=== PATIENT | male | born 1945 | race Caucasian/White ===

== ENCOUNTER 2017-06-28 18:54 | Inpatient (IN) | payer MEDICAID, OTHER ==
[~2017-06-28] VITALS: Ht 185.4 cm; Wt 94.4 kg
[2017-06-28] MEDS ORDERED: NITROGLYCERIN PACKET 1 GM PACKET ONE (19:22)
[2017-06-28 19:23] LABS: BASOPHILS % (AUTO) 0.6 % (0.0-2.0); EOSINOPHILS # (AUTO) 0.2 /CMM (0.0-0.7); EOSINOPHILS % (AUTO) 4.2 % (0.0-6.0); HEMATOCRIT 31 % (39-51); HEMOGLOBIN 10.6 g/dL (13.5-17.5); LYMPHOCYTES # (AUTO) 0.9 /CMM (0.8-4.8); LYMPHOCYTES % (AUTO) 18.6 % (20.0-44.0); MEAN CORPUSCULAR HEMOGLOBIN 29 PG (26.0-33.0); MEAN CORPUSCULAR HGB CONC 35 g/dl (31.0-36.0); MEAN CORPUSCULAR VOLUME 85 fL (80-96); MONOCYTES # (AUTO) 0.4 /CMM (0.1-1.30); MONOCYTES % (AUTO) 8.6 % (2.0-12.0); NEUTROPHILS # (AUTO) 3.5 /CMM (1.8-8.9); PLATELET COUNT (AUTO) 234 /CMM (150-450); RDW COEFFICIENT OF VARIATION 13.1 (11.5-15.0); RED BLOOD CELL COUNT(AUTO) 3.63 MIL/uL (4.5-6.0)
[2017-06-28] MEDS ORDERED: NITROGLYCERIN PACKET 1 GM PACKET TOP ONE (19:30)
[2017-06-28 19:33] LABS: CREATININE 1.2 mg/dL (0.6-1.3); POTASSIUM 3.9 mmol/L (3.5-5.1)
[2017-06-28 19:37] LABS: INR 1.03 (0.87-1.13); PROTHROMBIN TIME 10.7 SECS (9.5-12.7)
[2017-06-28 19:41] LABS: TROPONIN I 0.09 ng/mL (0.00-0.056)
[2017-06-28] MEDS ORDERED: ASPI-605 PO (21:08)
[2017-06-28] MEDS ORDERED: FERR-58 PO (21:08)
[2017-06-28] MEDS ORDERED: CLOP75TA15 PO (21:08)
[2017-06-28] MEDS ORDERED: LISI10TA5 PO (21:08)
[2017-06-28] MEDS ORDERED: FLUT16SP NS (21:08)
[2017-06-28] MEDS ORDERED: METO25TA6 PO (21:08)
[2017-06-28] MEDS ORDERED: PANT40TA4 PO (21:08)
[2017-06-28] MEDS ORDERED: RANO500T3 PO (21:08)
[2017-06-28] MEDS ORDERED: NITR0.4T48 SL (21:08)
[2017-06-28] MEDS ORDERED: MECL-102 PO (21:08)
[2017-06-28] MEDS ORDERED: ROSU40TA20 PO (21:08)
[2017-06-28] MEDS ORDERED: ONDA4TAB10 PO (21:08)
[2017-06-28] MEDS ORDERED: DOCU100C36 PO (21:08)
[2017-06-28] MEDS ORDERED: ISOS60TA4 PO (21:08)
[2017-06-28] MEDS ORDERED: SENN-167 PO (21:08)
[2017-06-28 21:10] VITALS: BP 122/70
[2017-06-28 21:30] VITALS: BP 122/70
[2017-06-28] MEDS ORDERED: ONDANSETRON HCL/PF 4 MG/2 ML VIAL IVP PRN (22:30)
[2017-06-28] MEDS ORDERED: MAGNESIUM HYDROXIDE 30 ML UDC PO PRN (22:30)
[2017-06-28] MEDS ORDERED: HYDROCODONE/APAP 5/325MG 1 EACH TABLET PO PRN (22:30)
[2017-06-28] MEDS ORDERED: ACETAMINOPHEN 325 MG TABLET PO PRN (22:30)
[2017-06-28] MEDS ORDERED: MAG HYDROX/AL HYDROX/SIMETH 30 ML UDC PO PRN (22:30)
[2017-06-28] MEDS ORDERED: Z GUARD REMEDY 2 OZ OINT TP PRN (22:30)
[2017-06-29] VITALS: BP 137/72
[2017-06-29 04:00] VITALS: BP 121/73
[2017-06-29] MEDS ORDERED: MORPHINE SULFATE INJ 2 MG/ML DISP.SYRIN ONE (05:06)
[2017-06-29] MEDS: MORPHINE SULFATE INJ 2 MG/ML DISP.SYRIN IV PRN (05:16)
[2017-06-29 07:20] LABS: BASOPHILS % (AUTO) 0.3 % (0.0-2.0); EOSINOPHILS # (AUTO) 0.2 /CMM (0.0-0.7); EOSINOPHILS % (AUTO) 3.9 % (0.0-6.0); HEMATOCRIT 32 % (39-51); HEMOGLOBIN 10.8 g/dL (13.5-17.5); LYMPHOCYTES # (AUTO) 0.8 /CMM (0.8-4.8); LYMPHOCYTES % (AUTO) 13.1 % (20.0-44.0); MEAN CORPUSCULAR HEMOGLOBIN 29 PG (26.0-33.0); MEAN CORPUSCULAR HGB CONC 34 g/dl (31.0-36.0); MEAN CORPUSCULAR VOLUME 87 fL (80-96); MONOCYTES # (AUTO) 0.4 /CMM (0.1-1.30); MONOCYTES % (AUTO) 6.9 % (2.0-12.0); NEUTROPHILS # (AUTO) 4.8 /CMM (1.8-8.9); NEUTROPHILS % (AUTO) 75.8 % (43.0-81.0); PLATELET COUNT (AUTO) 180 /CMM (150-450); RDW COEFFICIENT OF VARIATION 14.4 (11.5-15.0); RED BLOOD CELL COUNT(AUTO) 3.67 MIL/uL (4.5-6.0); WHITE BLOOD COUNT (AUTO) 6.4 K/uL (4.3-11.0)
[2017-06-29 07:26] LABS: CALCIUM, SERUM 8.2 mg/dL (8.5-10.1); CREATININE 0.9 mg/dL (0.6-1.3); POTASSIUM 4.1 mmol/L (3.5-5.1)
[2017-06-29 07:39] LABS: ALBUMIN 3.3 g/dL (3.4-5.0); BILIRUBIN,TOTAL 0.2 mg/dL (0.2-1.0); MAGNESIUM 2.1 mg/dL (1.8-2.4); PHOSPHORUS 3.3 mg/dL (2.5-4.9); TOTAL PROTEIN, SERUM 6.5 g/dL (6.4-8.2)
[2017-06-29 07:40] LABS: TROPONIN I 0.093 ng/mL (0.00-0.056)
[2017-06-29 08:00] VITALS: BP 154/74
[2017-06-29 08:14] LABS: THYROID STIMULATING HORMONE 2.734 uIU/mL (0.358-3.74)
[2017-06-29] MEDS: FLUTICASONE PROPIONATE 16 GM BOTTLE NS SCH (08:52)
[2017-06-29] MEDS: LISINOPRIL (10MG) 10 MG TABLET PO SCH (08:53)
[2017-06-29] MEDS: ASPIRIN EC 81 MG TABLET.DR PO SCH (08:54)
[2017-06-29] MEDS: METOPROLOL TARTRATE 25 MG TABLET PO SCH ×2 (08:54→17:00)
[2017-06-29] MEDS: PANTOPRAZOLE 40 MG TABLET.DR PO SCH (08:54)
[2017-06-29] MEDS: DOCUSATE SODIUM 100 MG CAPSULE PO SCH ×2 (08:54→17:17)
[2017-06-29] MEDS: CLOPIDOGREL BISULFATE 75 MG TABLET PO SCH (08:54)
[2017-06-29] MEDS: ENOXAPARIN SODIUM 100 MG/ML DISP.SYRIN SQ SCH ×2 (08:55→21:29)
[2017-06-29] MEDS: ALBUTEROL FS 2.5 MG/0.5 ML VIAL.NEB NEB SCH ×5 (09:00→22:41)
[2017-06-29] MEDS ORDERED: Ranolazine (Ranexa) PO SCH (09:00)
[2017-06-29] MEDS: IPRATROPIUM NEB FS 0.5 MG/2.5 ML AMPUL.NEB NEB SCH ×5 (09:00→22:41)
[2017-06-29] MEDS ORDERED: FERROUS SULFATE (325 MG) 325 MG/TAB TABLET PO SCH (09:00)
[2017-06-29] MEDS ORDERED: MECLIZINE HCL 25 MG TABLET PO PRN (09:00)
[2017-06-29] MEDS: ISOSORBIDE MONONITRATE (30MG) 30 MG TAB.SR.24H PO SCH (13:00)
[2017-06-29 16:00] VITALS: BP 108/58
[2017-06-29 20:00] VITALS: BP 118/66
[2017-06-29] MEDS ORDERED: GUAIFENESIN/D-METHORPHAN HB 5 ML UDC ONE ×2 (21:18→21:27)
[2017-06-29] MEDS: GUAIFENESIN/D-METHORPHAN HB 5 ML UDC PO PRN (21:28)
[2017-06-29] MEDS ORDERED: GUAIFENESIN/CODEINE 10 ML UDC PO PRN (21:30)
[2017-06-29] MEDS: ATORVASTATIN 40 MG TABLET PO SCH (22:00)
[2017-06-29] MEDS: SENNOSIDES 8.6 MG TABLET PO SCH (22:00)
[2017-06-30] VITALS (7 sets, daily range): BP systolic 106–126; BP diastolic 56–71
[2017-06-30] MEDS: NITROGLYCERIN 0.4 MG/TAB BOTTLE SL PRN ×2 (03:29→03:45)
[2017-06-30] MEDS: ALBUTEROL FS 2.5 MG/0.5 ML VIAL.NEB NEB SCH ×6 (04:11→23:01)
[2017-06-30] MEDS: IPRATROPIUM NEB FS 0.5 MG/2.5 ML AMPUL.NEB NEB SCH ×6 (04:11→23:02)
[2017-06-30 07:02] LABS: BASOPHILS % (AUTO) 0.4 % (0.0-2.0); EOSINOPHILS # (AUTO) 0.2 /CMM (0.0-0.7); EOSINOPHILS % (AUTO) 3.3 % (0.0-6.0); HEMATOCRIT 32 % (39-51); HEMOGLOBIN 10.8 g/dL (13.5-17.5); LYMPHOCYTES # (AUTO) 0.7 /CMM (0.8-4.8); LYMPHOCYTES % (AUTO) 14.7 % (20.0-44.0); MEAN CORPUSCULAR HEMOGLOBIN 29 PG (26.0-33.0); MEAN CORPUSCULAR HGB CONC 34 g/dl (31.0-36.0); MEAN CORPUSCULAR VOLUME 87 fL (80-96); MONOCYTES # (AUTO) 0.4 /CMM (0.1-1.30); MONOCYTES % (AUTO) 8.3 % (2.0-12.0); NEUTROPHILS # (AUTO) 3.7 /CMM (1.8-8.9); NEUTROPHILS % (AUTO) 73.3 % (43.0-81.0); PLATELET COUNT (AUTO) 179 /CMM (150-450); RDW COEFFICIENT OF VARIATION 14.4 (11.5-15.0)
[2017-06-30 07:47] LABS: TROPONIN I 0.089 ng/mL (0.00-0.056)
[2017-06-30 07:51] LABS: ALBUMIN 3.2 g/dL (3.4-5.0); BILIRUBIN,TOTAL 0.2 mg/dL (0.2-1.0); CALCIUM, SERUM 8.5 mg/dL (8.5-10.1); CREATININE 0.9 mg/dL (0.6-1.3); MAGNESIUM 2.3 mg/dL (1.8-2.4); POTASSIUM 4.2 mmol/L (3.5-5.1); TOTAL PROTEIN, SERUM 6.5 g/dL (6.4-8.2)
[2017-06-30] MEDS: PANTOPRAZOLE 40 MG TABLET.DR PO SCH (08:54)
[2017-06-30] MEDS: LISINOPRIL (10MG) 10 MG TABLET PO SCH (08:55)
[2017-06-30] MEDS: DOCUSATE SODIUM 100 MG CAPSULE PO SCH ×2 (08:55→16:59)
[2017-06-30] MEDS: CLOPIDOGREL BISULFATE 75 MG TABLET PO SCH (08:55)
[2017-06-30] MEDS: METOPROLOL TARTRATE 25 MG TABLET PO SCH ×2 (08:55→16:51)
[2017-06-30] MEDS: ISOSORBIDE MONONITRATE (30MG) 30 MG TAB.SR.24H PO SCH (08:55)
[2017-06-30] MEDS: ENOXAPARIN SODIUM 100 MG/ML DISP.SYRIN SQ SCH ×2 (08:56→21:22)
[2017-06-30] MEDS: ASPIRIN EC 81 MG TABLET.DR PO SCH (08:56)
[2017-06-30] MEDS: FLUTICASONE PROPIONATE 16 GM BOTTLE NS SCH (08:58)
[2017-06-30] MEDS: GUAIFENESIN/D-METHORPHAN HB 5 ML UDC PO PRN (11:21)
[2017-06-30] MEDS: MORPHINE SULFATE INJ 2 MG/ML DISP.SYRIN IV PRN (15:11)
[2017-06-30] MEDS: ATORVASTATIN 40 MG TABLET PO SCH (21:22)
[2017-06-30] MEDS: SENNOSIDES 8.6 MG TABLET PO SCH (21:22)
[2017-07-01] VITALS: BP 131/67
[2017-07-01 00:21] VITALS: BP 131/67
[2017-07-01] MEDS: ALBUTEROL FS 2.5 MG/0.5 ML VIAL.NEB NEB SCH ×4 (03:47→14:59)
[2017-07-01] MEDS: IPRATROPIUM NEB FS 0.5 MG/2.5 ML AMPUL.NEB NEB SCH ×4 (03:47→14:59)
[2017-07-01 04:18] VITALS: BP 120/66
[2017-07-01 04:24] VITALS: BP 120/66
[2017-07-01 08:00] VITALS: BP 131/77
[2017-07-01] MEDS ORDERED: LEVOFLOXACIN (750 MG) 750 MG TABLET PO SCH (09:00)
[2017-07-01] MEDS ORDERED: ERGOCALCIFEROL (VITAMIN D 2) 50,000 UNIT CAPSULE PO SCH (10:00)
[2017-07-01] MEDS ORDERED: LEVO750T21 PO (10:04)
[2017-07-01] MEDS: DOCUSATE SODIUM 100 MG CAPSULE PO SCH (10:40)
[2017-07-01] MEDS: CLOPIDOGREL BISULFATE 75 MG TABLET PO SCH (10:40)
[2017-07-01] MEDS: ASPIRIN EC 81 MG TABLET.DR PO SCH (10:41)
[2017-07-01] MEDS: PANTOPRAZOLE 40 MG TABLET.DR PO SCH (10:42)
[2017-07-01] MEDS: METOPROLOL TARTRATE 25 MG TABLET PO SCH (10:43)
[2017-07-01] MEDS: LISINOPRIL (10MG) 10 MG TABLET PO SCH (10:44)
[2017-07-01] MEDS: ISOSORBIDE MONONITRATE (30MG) 30 MG TAB.SR.24H PO SCH (10:45)
[2017-07-01] MEDS: NITROGLYCERIN 0.4 MG/TAB BOTTLE SL PRN ×3 (10:49→14:54)
[2017-07-01] MEDS: FLUTICASONE PROPIONATE 16 GM BOTTLE NS SCH (10:54)
[2017-07-01 15:00] VITALS: BP 128/68
[2017-07-01] MEDS ORDERED: ENOXAPARIN SODIUM 100 MG/ML DISP.SYRIN SQ SCH (21:00)
== END 2017-07-01 15:50 | disposition home or self-care (01) | DRG 280 ==
LOC: ER 18:56 → TELE 21:01 → MED 07-01 09:01
PROVIDERS: ADMIT Nurse Practitioner Acute Care; ATTEND Nurse Practitioner Acute Care
DX: I21.4 Non-ST elevation (NSTEMI) myocardial infarction (principal); N17.0 Acute kidney failure with tubular necrosis; D50.9 Iron deficiency anemia, unspecified; K40.90 Unilateral inguinal hernia, without obstruction or gangrene, not specified as recurrent; I25.10 Atherosclerotic heart disease of native coronary artery without angina pectoris; I10 Essential (primary) hypertension; K21.9 Gastro-esophageal reflux disease without esophagitis; R42 Dizziness and giddiness; Z98.61 Coronary angioplasty status; E55.9 Vitamin D deficiency, unspecified; J20.9 Acute bronchitis, unspecified
CPT/HCPCS: 36415; 71010-TC; 80048-TC; 80053-TC; 80061-TC; 82306; 82728-TC; 83540-TC; 83735-TC; 83880; 84100-TC; 84439-TC; 84443-TC; 84484-TC; 85025-TC; 85730-TC; 87081-TC; 93307-TC; 94799-TC; J1650; J2270

== ENCOUNTER 2017-09-17 18:59 | Inpatient (IN) | payer OTHER ==
[~2017-09-17] VITALS: Ht 337.8 cm; Wt 93.4 kg
[~2017-09-17 18:59] MED LIST: ASPI-605 PO; CLOP75TA15 PO; DOCU100C36 PO; FERR325T23 PO; FLUT16SP NS; ISOS60TA4 PO; LEVO750T21 PO; LISI10TA5 PO; MECL-102 PO; METO25TA6 PO; NITR0.4T48 SL; ONDA4TAB10 PO; PANT40TA4 PO; RANO500T3 PO; ROSU40TA21 PO; SENN-167 PO
[2017-09-17 19:50] LABS: BASOPHILS % (AUTO) 0.5 % (0.0-2.0); EOSINOPHILS # (AUTO) 0.2 /CMM (0.0-0.7); HEMATOCRIT 29 % (39-51); HEMOGLOBIN 10.3 g/dL (13.5-17.5); LYMPHOCYTES # (AUTO) 1.1 /CMM (0.8-4.8); LYMPHOCYTES % (AUTO) 17.1 % (20.0-44.0); MEAN CORPUSCULAR HEMOGLOBIN 29 PG (26.0-33.0); MEAN CORPUSCULAR HGB CONC 35 g/dl (31.0-36.0); MEAN CORPUSCULAR VOLUME 83 fL (80-96); MONOCYTES # (AUTO) 0.5 /CMM (0.1-1.30); MONOCYTES % (AUTO) 7.7 % (2.0-12.0); NEUTROPHILS # (AUTO) 4.4 /CMM (1.8-8.9); NEUTROPHILS % (AUTO) 71.7 % (43.0-81.0); PLATELET COUNT (AUTO) 230 /CMM (150-450); RDW COEFFICIENT OF VARIATION 13.3 (11.5-15.0); RED BLOOD CELL COUNT(AUTO) 3.53 MIL/uL (4.5-6.0); WHITE BLOOD COUNT (AUTO) 6.2 K/uL (4.3-11.0)
[2017-09-17 20:03] LABS: CALCIUM, SERUM 8.8 mg/dL (8.5-10.1); CREATININE 1.1 mg/dL (0.6-1.3)
[2017-09-17 20:07] LABS: INR 0.98 (0.85-1.15)
[2017-09-17 20:12] LABS: TROPONIN I 0.073 ng/mL (0.00-0.056)
[2017-09-17] MEDS ORDERED: ONDANSETRON HCL/PF 4 MG/2 ML VIAL IVP PRN (20:30)
[2017-09-17] MEDS ORDERED: ENOXAPARIN SODIUM 40 MG/0.4 ML DISP.SYRIN SQ SCH (20:30)
[2017-09-17] MEDS ORDERED: MECLIZINE HCL 25 MG TABLET PO SCH (20:30)
[2017-09-17] MEDS ORDERED: ZOLPIDEM TARTRATE 5 MG TABLET PO PRN (20:30)
[2017-09-17] MEDS ORDERED: MAGNESIUM HYDROXIDE 30 ML UDC PO PRN (20:30)
[2017-09-17] MEDS ORDERED: NITROGLYCERIN 0.4 MG/TAB BOTTLE SL SCH (20:30)
[2017-09-17] MEDS ORDERED: MAG HYDROX/AL HYDROX/SIMETH 30 ML UDC PO PRN (20:30)
[2017-09-17] MEDS ORDERED: HYDROCODONE/APAP 5/325MG 1 EACH TABLET PO PRN (20:30)
[2017-09-17] MEDS ORDERED: ACETAMINOPHEN 325 MG TABLET PO PRN (20:30)
[2017-09-17] MEDS ORDERED: Z GUARD REMEDY 2 OZ OINT TP PRN (20:30)
--- NOTE | 2017-09-17 21:01 | NUR ---
TELE 310-2 FOR CHEST PAIN, ACCEPTING.
[2017-09-17] MEDS ORDERED: ENOXAPARIN SODIUM 40 MG/0.4 ML DISP.SYRIN SQ ONE (21:02)
[2017-09-17] MEDS: NITROGLYCERIN PACKET 1 GM PACKET TOP SCH (21:05)
--- NOTE | 2017-09-17 21:51 | NUR ---
REPORT GIVEN TO MAGGIE CHAU. GOING TO TELE 310-2
[2017-09-17 22:00] VITALS: BP 134/78
[2017-09-17] MEDS: SENNOSIDES 8.6 MG TABLET PO SCH (22:00)
--- NOTE | 2017-09-17 22:30 | NUR ---
RN NOTE; ADMITTED A 71 Y/O, M, A, OX4, BREATHING EVENLY. NO SOB. NAD. ALDAIR WARM AND DRY. W/ INTERMITTENT CHEST PAIN. MEDICAL HX AND INFO WAS OBTAINED FROM THE PT. VSS. NEEDS ATTENDED . BED LOW LOCKED. CALL LIGHT WITHIN REACH,. WILL CONT TO MONITOR AND WILL F/U W/ MD'S ORDERS.
--- NOTE | 2017-09-17 22:50 | NUR ---
SEEN BY DR. WILLIS AT THE BEDSIDE.
[2017-09-17] MEDS: MORPHINE SULFATE INJ 4 MG/ML DISP.SYRIN IV PRN (23:00)
--- NOTE | 2017-09-17 23:00 | NUR ---
MORPHINE GIVEN ORDERED FOR C/O CHEST PAIN . WILL CONT TO MONITOR ,
--- NOTE | 2017-09-17 23:03 | NUR ---
PT REFUSED CAROLINE STATED THE HE DOESN'T TAKE THAT. LAST BM: YESTERDAY.
[2017-09-18] VITALS: BP 130/75
--- NOTE | 2017-09-18 00:20 | NUR ---
PT IS SLEEPING, AROUSES EASILY, W/ NO S/S OR C/O PAIN OR DISCOMFORT. TELE MONITOR IN PLACE READING SR W/ 1ST DEGREE AV BLOCK. HR:61. WILL CONT TO MONITOR ,
--- NOTE | 2017-09-18 00:46 | NUR ---
CALLED LAB TO DRAW TROPONIN, [facility] IS ON THE WAY.
--- NOTE | 2017-09-18 01:33 | NUR ---
RELAYED TROPONIN LEVEL OF 0.[address] WILLIS W/ NNO. PT STABLE, SLEEPING, W/ NO S/S OR C/O CHEST PAIN. NO SOB. ON ONGOING CARDIAC MONITORING. VSS. WILL CONT TO MONITOR.
[2017-09-18 04:00] VITALS: BP 118/61
[2017-09-18] MEDS: NITROGLYCERIN PACKET 1 GM PACKET TOP SCH ×3 (05:43→20:52)
--- NOTE | 2017-09-18 06:27 | NUR ---
RN NOTES: PATIENT IN BED SLEEPING COMFORTABLY, AROUSES EASILY, NO ACUTE DISTRESS NOTED. IV TO RIGHT FA PATENT AND INTACT. PATIENT PLACED ON TELE MONITOR SHOWING SR/SB IST DEGREE AV BLOCK. NO COMPLAINTS OF CHEST PAIN AT THIS TIME. BED IN LOW LOCKED POSITION WITH CALL LIGHT WITHIN REACH.
[2017-09-18 06:39] LABS: BASOPHILS % (AUTO) 0.4 % (0.0-2.0); EOSINOPHILS # (AUTO) 0.2 /CMM (0.0-0.7); EOSINOPHILS % (AUTO) 3.7 % (0.0-6.0); HEMATOCRIT 30 % (39-51); HEMOGLOBIN 10.1 g/dL (13.5-17.5); LYMPHOCYTES # (AUTO) 1.1 /CMM (0.8-4.8); LYMPHOCYTES % (AUTO) 20.8 % (20.0-44.0); MEAN CORPUSCULAR HEMOGLOBIN 29 PG (26.0-33.0); MEAN CORPUSCULAR HGB CONC 34 g/dl (31.0-36.0); MEAN CORPUSCULAR VOLUME 85 fL (80-96); MONOCYTES # (AUTO) 0.4 /CMM (0.1-1.30); MONOCYTES % (AUTO) 7.9 % (2.0-12.0); NEUTROPHILS # (AUTO) 3.5 /CMM (1.8-8.9); NEUTROPHILS % (AUTO) 67.2 % (43.0-81.0); PLATELET COUNT (AUTO) 192 /CMM (150-450); RED BLOOD CELL COUNT(AUTO) 3.47 MIL/uL (4.5-6.0); WHITE BLOOD COUNT (AUTO) 5.2 K/uL (4.3-11.0)
[2017-09-18 06:56] LABS: CALCIUM, SERUM 8.2 mg/dL (8.5-10.1); CREATININE 0.9 mg/dL (0.6-1.3); MAGNESIUM 2.2 mg/dL (1.8-2.4); PHOSPHORUS 4.1 mg/dL (2.5-4.9); POTASSIUM 4.1 mmol/L (3.5-5.1)
[2017-09-18] MEDS: PANTOPRAZOLE 40 MG TABLET.DR PO SCH (07:11)
--- NOTE | 2017-09-18 07:15 | NUR ---
ZOFRAN GIVEN ORDERED FOR C/O NAUSEA. WILL CONT TO MONITOR.
--- NOTE | 2017-09-18 07:43 | NUR ---
Tele/RN - AM Notes Received patient in bed awake, A/O x 4, denies chest pain, tele shows SR with first degree AVB, no apparent distress, nausea improved post Zofran administration. Patient independent with ADLs. All needs attended and met. Will continue to monitor closely.
[2017-09-18 08:00] VITALS: BP 134/73
[2017-09-18] MEDS: DOCUSATE SODIUM 100 MG CAPSULE PO SCH ×2 (08:29→17:00)
[2017-09-18] MEDS: CLOPIDOGREL BISULFATE 75 MG TABLET PO SCH (08:29)
[2017-09-18] MEDS: FLUTICASONE PROPIONATE 16 GM BOTTLE NS SCH (08:29)
[2017-09-18] MEDS: LEVOFLOXACIN (750 MG) 750 MG TABLET PO SCH ×2 (08:29→08:35)
[2017-09-18] MEDS: FERROUS SULFATE (325 MG) 325 MG/TAB TABLET PO SCH (08:29)
[2017-09-18] MEDS: ASPIRIN EC 81 MG TABLET.DR PO SCH (08:29)
[2017-09-18] MEDS: LISINOPRIL (10MG) 10 MG TABLET PO SCH (08:30)
[2017-09-18] MEDS: METOPROLOL TARTRATE 25 MG TABLET PO SCH ×2 (08:30→17:00)
--- NOTE | 2017-09-18 08:35 | NUR ---
An/MAGGIE Subramanian Patient refused medication stated he already completed the 7-day course two weeks ago.
[2017-09-18] MEDS ORDERED: PANTOPRAZOLE 40 MG TABLET.DR PO SCH (09:00)
[2017-09-18] MEDS: ISOSORBIDE MONONITRATE (30MG) 30 MG TAB.SR.24H PO SCH (13:01)
[2017-09-18 16:00] VITALS: BP 106/66
--- NOTE | 2017-09-18 18:30 | NUR ---
M/S RN - Notes Patient alert and oriented throughout the shift, denies chest pain, tolerating room air. Seen by Dr. Bailey (cardio), no further cardiac work-up needed. Possible discharge home tomorrow if he continues to be stable. Patient requested room change for roommate compatibility, going to Rm [id number]. Will endorse to night RN for continuity of care.
--- NOTE | 2017-09-18 19:34 | NUR ---
MS RN OPENING NOTE RECEIVED PATIENT IN BED, RESTING COMFORTABLY, ALERT ORIENTED X 4, ABLE TO MAKE NEEDS KNOWN. ON ROOM AIR, TOLERATING WELL. RESPIRATIONS EVEN AND UNLABORED. DENIES SOB AND CHEST PAIN AT THIS TIME. MS STATUS, LEFT FOREARM IV 18G, FLASHED WITH NS, PATENT AND INTACT. ALL NEEDS ATTENDED. SAFETY MEASURES IN PLACE, BED IN LOW LOCKED POSITION, SIDE RAILS UP X2, CALL LIGHT WITHIN EASY REACH. WILL CONTINUE TO MONITOR.
[2017-09-18 20:00] VITALS: BP 112/65
[2017-09-18] MEDS: MORPHINE SULFATE INJ 4 MG/ML DISP.SYRIN IV PRN (20:44)
[2017-09-18] MEDS ORDERED: ENOXAPARIN SODIUM 40 MG/0.4 ML DISP.SYRIN SQ SCH (21:00)
--- NOTE | 2017-09-18 21:00 | NUR ---
PATIENT'S BP IS 112/65, NITRO-BID WAS HELD AT THIS TIME. PATIENT REFUSED MEDICATION.
[2017-09-18] MEDS: SENNOSIDES 8.6 MG TABLET PO SCH (21:45)
--- NOTE | 2017-09-18 22:00 | NUR ---
PATIENT REFUSED SEN[place]OT. MEDICATION NON-ADMINISTERED.
[2017-09-19] MEDS: MORPHINE SULFATE INJ 4 MG/ML DISP.SYRIN IV PRN (02:17)
--- NOTE | 2017-09-19 05:00 | NUR ---
PER REQUEST PATIENT WAS PLACED ON 2 LITER OXYGEN VIA NC. REPORTS IT HELPS HIM BREATH BETTER. O2 SATURATION 93% BEFORE OXYGEN ADMINISTRATION.
[2017-09-19] MEDS: NITROGLYCERIN PACKET 1 GM PACKET TOP SCH (05:15)
[2017-09-19 06:36] LABS: BASOPHILS % (AUTO) 0.3 % (0.0-2.0); EOSINOPHILS # (AUTO) 0.1 /CMM (0.0-0.7); EOSINOPHILS % (AUTO) 2.8 % (0.0-6.0); HEMATOCRIT 29 % (39-51); HEMOGLOBIN 9.8 g/dL (13.5-17.5); LYMPHOCYTES # (AUTO) 0.8 /CMM (0.8-4.8); LYMPHOCYTES % (AUTO) 15.9 % (20.0-44.0); MEAN CORPUSCULAR HEMOGLOBIN 29 PG (26.0-33.0); MEAN CORPUSCULAR HGB CONC 34 g/dl (31.0-36.0); MEAN CORPUSCULAR VOLUME 85 fL (80-96); MONOCYTES # (AUTO) 0.4 /CMM (0.1-1.30); MONOCYTES % (AUTO) 7.8 % (2.0-12.0); NEUTROPHILS # (AUTO) 3.6 /CMM (1.8-8.9); NEUTROPHILS % (AUTO) 73.2 % (43.0-81.0); PLATELET COUNT (AUTO) 182 /CMM (150-450); RDW COEFFICIENT OF VARIATION 14.6 (11.5-15.0); RED BLOOD CELL COUNT(AUTO) 3.36 MIL/uL (4.5-6.0); WHITE BLOOD COUNT (AUTO) 4.9 K/uL (4.3-11.0)
[2017-09-19 06:51] LABS: CALCIUM, SERUM 8.5 mg/dL (8.5-10.1)
--- NOTE | 2017-09-19 06:56 | NUR ---
MS RN CLOSING NOTE PATIENT IN BED, SLEEPING COMFORTABLY, EASILY AROUSED BY VERBAL STIMULI, ORIENTED X 4, ABLE TO MAKE NEEDS KNOWN. ON 2L OF OXYGEN VIA NC, TOLERATING WELL. RESPIRATIONS EVEN AND UNLABORED. DENIES SOB AND CHEST PAIN AT THIS TIME. MS STATUS, LEFT FOREARM IV 18G, FLASHED WITH NS, PATENT AND INTACT. ALL NEEDS ATTENDED. SAFETY MEASURES IN PLACE, BED IN LOW LOCKED POSITION, SIDE RAILS UP X2, CALL LIGHT WITHIN EASY REACH, WILL ENDORSE TO AM NURSE FOR DANIEL.
--- NOTE | 2017-09-19 07:30 | NUR ---
MS RN OPENING NOTES PATIENT IS ALERT AND ORIENTED X4. RECEIVED PATIENT IN NO APPARENT DISTRESS. BEDSIDE RAILS ARE UPX2. BED IS LOCKED AND LOWERED. CALL LIGHT IS WITHIN REACH. WILL CONTINUE TO MONITOR.
[2017-09-19] MEDS: FERROUS SULFATE (325 MG) 325 MG/TAB TABLET PO SCH (08:12)
[2017-09-19] MEDS: DOCUSATE SODIUM 100 MG CAPSULE PO SCH (08:13)
[2017-09-19] MEDS: ISOSORBIDE MONONITRATE (30MG) 30 MG TAB.SR.24H PO SCH (08:13)
[2017-09-19] MEDS: CLOPIDOGREL BISULFATE 75 MG TABLET PO SCH (08:13)
[2017-09-19] MEDS: ASPIRIN EC 81 MG TABLET.DR PO SCH (08:13)
[2017-09-19] MEDS: METOPROLOL TARTRATE 25 MG TABLET PO SCH (08:13)
[2017-09-19] MEDS: LISINOPRIL (10MG) 10 MG TABLET PO SCH (08:14)
[2017-09-19] MEDS: PANTOPRAZOLE 40 MG TABLET.DR PO SCH (08:14)
[2017-09-19] MEDS: FLUTICASONE PROPIONATE 16 GM BOTTLE NS SCH (08:15)
[2017-09-19 08:28] VITALS: BP 122/68
--- NOTE | 2017-09-19 08:32 | NUR ---
CALLED PHARMACY TO PROVIDE FLONASE FOR PATIENT.
--- NOTE | 2017-09-19 11:48 | NUR ---
MS FRANCHISE SALES MANAGER NOTES PATIENT LEFT IN STABLE CONDITION. IN NO APPARENT DISTRESS. VITAL SIGNS ARE STABLE. ALL NEEDS WERE MET. ID BAND WAS REMOVED. IV WAS REMOVED. PATIENT WAS ESCORTED OUT OF THE HOSPITAL BY TR WHEELER VIA WHEELCHAIR.
== END 2017-09-19 11:46 | disposition home or self-care (01) | DRG 190 ==
LOC: ER 19:00 → TELE 22:03 → MED 09-18 12:01
PROVIDERS: ADMIT Internal Medicine; ATTEND Internal Medicine
DX: I24.9 Acute ischemic heart disease, unspecified (principal); I21.4 Non-ST elevation (NSTEMI) myocardial infarction; I10 Essential (primary) hypertension; K21.9 Gastro-esophageal reflux disease without esophagitis; I25.10 Atherosclerotic heart disease of native coronary artery without angina pectoris; Z95.5 Presence of coronary angioplasty implant and graft; Z87.891 Personal history of nicotine dependence; Z82.49 Family history of ischemic heart disease and other diseases of the circulatory system; Z79.899 Other long term (current) drug therapy; Z79.82 Long term (current) use of aspirin; D63.8 Anemia in other chronic diseases classified elsewhere; E78.5 Hyperlipidemia, unspecified
CPT/HCPCS: 36415; 71045-TC; 80048-TC; 83735-TC; 84100-TC; 84484-TC; 85025-TC; 85730-TC; 87081-TC; A4606; J1650; J2270; J2405; Z7610

== ENCOUNTER 2022-05-07 10:12 | Day surgery (SDC) | payer MEDICAID, MEDICARE ==
[~2022-05-07] VITALS: Ht 182.9 cm; Wt 93.9 kg
[~2022-05-07 10:12] MED LIST changes: -ISOS60TA4 PO; +ISOS60TA72 PO; -LEVO750T21 PO; +LISI10TA29 PO; -LISI10TA5 PO; -MECL-102 PO; +MECL-159 PO; +ONDA-97 PO; -ONDA4TAB10 PO; -PANT40TA4 PO; +PANT40TA49 PO; -ROSU40TA21 PO; +ROSU40TA23 PO; -SENN-167 PO; +SENN-261 PO
[2022-05-07] MEDS ORDERED: NITROGLYCERIN 0.4 MG/TAB BOTTLE ONE (12:31)
[2022-05-07] MEDS ORDERED: IOHEXOL-350 100 ML VIAL IV ONE (12:31)
[2022-05-07] MEDS ORDERED: IV NS 0.9% 250 ML IV ONE (12:32)
[2022-05-07] MEDS ORDERED: CT SWABBABLE VALVE TRANS SET 1 EA INFUS.SET MC ONE (12:32)
[2022-05-07] MEDS ORDERED: METOPROLOL TARTRATE INJ 5 MG/5 ML AMPUL ONE (12:32)
[2022-05-07 12:54] VITALS: BP 122/63
--- NOTE | 2022-05-07 12:59 | NUR ---
Report given to SANTI [facility] [address] for continuity of care.
[2022-05-07] MEDS ORDERED: NITROGLYCERIN 0.4 MG/TAB BOTTLE SL ONE (13:00)
[2022-05-07] MEDS ORDERED: METOPROLOL TARTRATE INJ 5 MG/5 ML AMPUL IVP PRN (13:00)
== END 2022-05-07 13:05 | disposition short-term general hospital (02) ==
LOC: CT 10:12
PROVIDERS: ATTEND Internal Medicine Interventional Cardiology
DX: I65.22 Occlusion and stenosis of left carotid artery (principal); I70.8 Atherosclerosis of other arteries
CPT/HCPCS: 75574; J7050; Q9967; J3490

== ENCOUNTER 2023-09-09 14:36 | Inpatient (IN) | payer MEDICARE, MEDICAID ==
[~2023-09-09] VITALS: Ht 185.4 cm; Wt 87.3 kg
[~2023-09-09 14:36] MED LIST changes: +TRIA15OI2 TP
[2023-09-09 18:00] LABS: CALCIUM, SERUM 8.9 mg/dL (8.5-10.1); CARBON DIOXIDE 24 mmol/L (21-32); CHLORIDE 101 mmol/L (98-107); CREATININE 1.1 mg/dL (0.6-1.3); GLUCOSE 109 mg/dL (74-106); POTASSIUM 4.2 mmol/L (3.5-5.1); SODIUM SERUM 133 mmol/L (136-145); UREA NITROGEN, BLOOD 17 mg/dL (7-18)
[2023-09-09 18:02] LABS: BASOPHILS % (AUTO) 0.4 % (0.0-2.0); EOSINOPHILS # (AUTO) 0.2 K/uL (0.0-0.7); HEMATOCRIT 32 % (39-51); HEMOGLOBIN 10.8 g/dL (13.5-17.5); LYMPHOCYTES # (AUTO) 0.6 K/uL (0.8-4.8); MEAN CORPUSCULAR HEMOGLOBIN 30 PG (26.0-33.0); MEAN CORPUSCULAR HGB CONC 34 g/dl (31.0-36.0); MEAN CORPUSCULAR VOLUME 89 fL (80-96); MONOCYTES # (AUTO) 0.4 K/uL (0.1-1.30); MONOCYTES % (AUTO) 7.9 % (2.0-12.0); NEUTROPHILS # (AUTO) 4.3 K/uL (1.8-8.9); NEUTROPHILS % (AUTO) 76.7 % (43.0-81.0); PLATELET COUNT (AUTO) 217 K/uL (150-450); RED BLOOD CELL COUNT(AUTO) 3.55 MIL/uL (4.5-6.0); RED CELL DISTRIBUTION WIDTH 13.8 % (11.5-15.0); WHITE BLOOD COUNT (AUTO) 5.7 K/uL (4.3-11.0)
[2023-09-09 18:05] LABS: ALANINE AMINOTRANSFERASE 27 U/L (12-78); ALBUMIN 3.4 g/dL (3.4-5.0); ALKALINE PHOSPHATASE 85 U/L (46-116); ASPARTATE AMINOTRANSFERASE 18 U/L (15-37); BILIRUBIN,DIRECT 0.2 mg/dL (0.0-0.2); BILIRUBIN,TOTAL 0.6 mg/dL (0.2-1.0); TOTAL PROTEIN, SERUM 6.8 g/dL (6.4-8.2)
[2023-09-09 18:24] LABS: INR 1.11 (0.91-1.10); PARTIAL THROMBOPLASTIN TIME 34.3 SEC (24.3-34.3); PROTHROMBIN TIME 11.3 SECS (9.2-11.1)
[2023-09-09] MEDS ORDERED: LISINOPRIL (20MG) 20 MG TABLET ONE (19:10)
[2023-09-09] MEDS: LISINOPRIL (10MG) 10 MG TABLET PO SCH (19:11)
[2023-09-09 20:38] LABS: APPEARANCE,URINE Clear (CLEAR); BILIRUBIN,URINE Negative (NEGATIVE); BLOOD, URINE Negative Ery/uL (NEGATIVE); COLOR,URINE YELLOW (YELLOW); KETONES,URINE Negative (NEGATIVE); LEUKOCYTE ESTERASE ,URINE Negative (NEGATIVE); NITRITE, URINE Negative (NEGATIVE); PH,URINE 8.5 (5.0-8.0); PROTEIN,URINE Negative (NEGATIVE); UGLUCOSE Negative (NEGATIVE); UROBILINOGEN,URINE 0.2 EU/dL (0.2)
[2023-09-09 21:08] LABS: AMPHETAMINE, URINE NEGATIVE (NEGATIVE); BARBITURATE, URINE NEGATIVE (NEGATIVE); BENZODIAZEPINE, URINE NEGATIVE (NEGATIVE); CANNABINOID, URINE NEGATIVE (NEGATIVE); COCCAINE, URINE NEGATIVE (NEGATIVE); OPIATE, URINE NEGATIVE (NEGATIVE); PHENCYCLIDINE SCREEN,URINE NEGATIVE (NEGATIVE)
[2023-09-09 21:35] LABS: ALANINE AMINOTRANSFERASE 25 U/L (12-78); ALBUMIN 3.4 g/dL (3.4-5.0); ALCOHOL, BLOOD < 3 mg/dL (0-10); ALKALINE PHOSPHATASE 87 U/L (46-116); ASPARTATE AMINOTRANSFERASE 17 U/L (15-37); BILIRUBIN,DIRECT 0.1 mg/dL (0.0-0.2); BILIRUBIN,TOTAL 0.5 mg/dL (0.2-1.0); TOTAL PROTEIN, SERUM 6.8 g/dL (6.4-8.2)
[2023-09-09 21:40] LABS: ACETAMINOPHEN 0 ug/ml (10-30); SALICYLATE 0.9 mg/dL (2.8-20.0)
[2023-09-10] VITALS (9 sets, daily range): BP systolic 94–153; BP diastolic 53–79; TEMP 97.9–98.4; O2SAT 94–100
[2023-09-10] MEDS ORDERED: HYDROCODONE/APAP 5/325MG TABLET PO PRN (00:30)
[2023-09-10] MEDS ORDERED: NITROGLYCERIN 0.4 MG/TAB BOTTLE SL PRN (00:30)
[2023-09-10] MEDS ORDERED: ACETAMINOPHEN 325 MG TABLET PO PRN (00:30)
[2023-09-10] MEDS ORDERED: MAG HYDROX/AL HYDROX/SIMETH 30 ML UDC PO PRN (00:30)
[2023-09-10] MEDS ORDERED: ONDANSETRON HCL/PF 4 MG/2 ML VIAL IVP PRN (00:30)
[2023-09-10] MEDS ORDERED: MORPHINE SULFATE INJ 2 MG/ML DISP.SYRIN IV PRN (00:30)
[2023-09-10] MEDS ORDERED: ZOLPIDEM TARTRATE 5 MG TABLET PO PRN (00:30)
[2023-09-10] MEDS ORDERED: Z GUARD REMEDY 4 OZ OINT TP PRN (00:30)
[2023-09-10] MEDS ORDERED: MAGNESIUM HYDROXIDE 30 ML UDC PO PRN (00:30)
[2023-09-10] MEDS ORDERED: MECLIZINE HCL 25 MG TABLET PO PRN (01:00)
[2023-09-10] MEDS: ENOXAPARIN SODIUM 40 MG/0.4 ML DISP.SYRIN SQ SCH (01:51)
[2023-09-10] MEDS: PANTOPRAZOLE 40 MG TABLET.DR PO SCH (07:28)
[2023-09-10] MEDS: ASPIRIN EC 81 MG TABLET.DR PO SCH (08:47)
[2023-09-10] MEDS: RANOLAZINE 500 MG TAB.ER.12H PO SCH ×2 (08:47→17:05)
[2023-09-10] MEDS: FERROUS SULFATE (325 MG) 325 MG/TAB TABLET PO SCH (08:47)
[2023-09-10] MEDS: CLOPIDOGREL BISULFATE 75 MG TABLET PO SCH (08:47)
[2023-09-10] MEDS: DOCUSATE SODIUM 100 MG CAPSULE PO SCH (08:47)
[2023-09-10] MEDS: ISOSORBIDE MONONITRATE (30MG) 30 MG TAB.SR.24H PO SCH (08:49)
[2023-09-10] MEDS: METOPROLOL TARTRATE 25 MG TABLET PO SCH (08:49)
[2023-09-10] MEDS ORDERED: LISINOPRIL (10MG) 10 MG TABLET PO SCH (09:00)
[2023-09-10] MEDS: FLUTICASONE PROPIONATE 16 GM BOTTLE NS SCH (09:00)
[2023-09-10] MEDS ORDERED: POLY17PO4 PO (10:09)
[2023-09-10] MEDS ORDERED: ISOS120T13 PO (10:09)
[2023-09-10] MEDS ORDERED: RANO10005 PO (10:09)
[2023-09-10] MEDS ORDERED: NA P133E RC (10:09)
[2023-09-10] MEDS ORDERED: AMLO2.5T4 PO (10:09)
[2023-09-10] MEDS ORDERED: MAGN400O6 PO (10:09)
[2023-09-10] MEDS ORDERED: METO25TA4 PO (10:09)
[2023-09-10] MEDS ORDERED: APIX5TAB PO (10:09)
[2023-09-10] MEDS ORDERED: ATOR40TA PO (10:09)
[2023-09-10] MEDS ORDERED: FINA5TAB11 PO (10:09)
[2023-09-10] MEDS ORDERED: BISA10SU12 RC (10:09)
[2023-09-10] MEDS ORDERED: MECL-182 PO (10:09)
[2023-09-10] MEDS ORDERED: VALS160T2 PO (10:09)
[2023-09-10] MEDS ORDERED: FLUT100B3 IH (10:10)
[2023-09-10] MEDS ORDERED: ACET-868 PO (10:10)
[2023-09-10] MEDS ORDERED: SERT25TA PO (10:10)
[2023-09-10] MEDS ORDERED: CRAN425C6 PO (10:10)
[2023-09-10] MEDS ORDERED: MECLIZINE HCL 12.5 MG TABLET PO PRN (15:00)
[2023-09-10] MEDS ORDERED: BUDESONIDE RESPULE INH 0.5 MG/2 ML AMPUL.NEB NEB PRN (15:30)
[2023-09-10] MEDS: APIXABAN 5 MG TABLET PO SCH (16:26)
[2023-09-10] MEDS: VALSARTAN 80 MG TABLET PO SCH (17:00)
[2023-09-10] MEDS: SERTRALINE HCL 25 MG TABLET PO SCH (17:05)
[2023-09-10] MEDS: BUDESONIDE RESPULE INH 0.5 MG/2 ML AMPUL.NEB NEB SCH (20:31)
[2023-09-10] MEDS: SENNOSIDES 8.6 MG TABLET PO SCH (21:19)
[2023-09-10] MEDS: AMLODIPINE BESYLATE 2.5 MG TABLET PO SCH (21:19)
[2023-09-10] MEDS: ATORVASTATIN 40 MG TABLET PO SCH (21:19)
[2023-09-10] MEDS ORDERED: ATORVASTATIN 40 MG TABLET PO SCH (22:00)
[2023-09-11] VITALS (7 sets, daily range): BP systolic 108–130; BP diastolic 60–80; TEMP 97.7–98.2; O2SAT 95–100
[2023-09-11 07:19] LABS: BASOPHILS % (AUTO) 0.2 % (0.0-2.0); EOSINOPHILS # (AUTO) 0.3 K/uL (0.0-0.7); EOSINOPHILS % (AUTO) 4.1 % (0.0-6.0); HEMATOCRIT 33 % (39-51); HEMOGLOBIN 11.5 g/dL (13.5-17.5); LYMPHOCYTES # (AUTO) 0.6 K/uL (0.8-4.8); LYMPHOCYTES % (AUTO) 9.8 % (20.0-44.0); MEAN CORPUSCULAR HEMOGLOBIN 31 PG (26.0-33.0); MEAN CORPUSCULAR HGB CONC 35 g/dl (31.0-36.0); MEAN CORPUSCULAR VOLUME 90 fL (80-96); MONOCYTES # (AUTO) 0.5 K/uL (0.1-1.30); NEUTROPHILS % (AUTO) 77.9 % (43.0-81.0); PLATELET COUNT (AUTO) 185 K/uL (150-450); RED CELL DISTRIBUTION WIDTH 13.7 % (11.5-15.0); WHITE BLOOD COUNT (AUTO) 6.4 K/uL (4.3-11.0)
[2023-09-11 08:07] LABS: CALCIUM, SERUM 9.1 mg/dL (8.5-10.1); CARBON DIOXIDE 22 mmol/L (21-32); CHLORIDE 101 mmol/L (98-107); CREATININE 1.1 mg/dL (0.6-1.3); GLUCOSE 96 mg/dL (74-106); MAGNESIUM 2.5 mg/dL (1.8-2.4); PHOSPHORUS 4.1 mg/dL (2.5-4.9); POTASSIUM 4.9 mmol/L (3.5-5.1); SODIUM SERUM 132 mmol/L (136-145); UREA NITROGEN, BLOOD 22 mg/dL (7-18)
[2023-09-11 08:58] LABS: CHOLESTEROL 90 mg/dL (<200); HDL CHOLESTEROL 37 mg/dL (40-60); LDL 42 mg/dL (0-99); THYROID STIMULATING HORMONE 2.249 uIU/mL (0.358-3.74); TRIGLYCERIDES 79 mg/dL (30-150)
[2023-09-11] MEDS ORDERED: PANTOPRAZOLE 40 MG TABLET.DR PO SCH (09:00)
[2023-09-11] MEDS: METOPROLOL SUCCINATE 25 MG TAB.SR.24H PO SCH (09:17)
[2023-09-11] MEDS: ISOSORBIDE MONONITRATE (30MG) 30 MG TAB.SR.24H PO SCH (09:19)
[2023-09-11] MEDS: FINASTERIDE (5 MG) 5 MG TABLET PO SCH (09:20)
== END 2023-09-11 17:53 | disposition short-term general hospital (02) | DRG 281 ==
LOC: ER 14:40 → TELE 23:58
PROVIDERS: ADMIT Internal Medicine; ATTEND Legal Medicine
PROC: 0HB6XZZ Excision of Back Skin, External Approach (ICD-10-PCS; principal; 2023-09-10)
DX: I21.4 Non-ST elevation (NSTEMI) myocardial infarction (principal); E87.1 Hypo-osmolality and hyponatremia; I48.20 Chronic atrial fibrillation, unspecified; I67.4 Hypertensive encephalopathy; I25.119 Atherosclerotic heart disease of native coronary artery with unspecified angina pectoris; R07.9 Chest pain, unspecified; K21.9 Gastro-esophageal reflux disease without esophagitis; N40.0 Benign prostatic hyperplasia without lower urinary tract symptoms; D64.9 Anemia, unspecified; I10 Essential (primary) hypertension; Z79.82 Long term (current) use of aspirin; E78.5 Hyperlipidemia, unspecified; F41.9 Anxiety disorder, unspecified; I25.2 Old myocardial infarction; Z79.01 Long term (current) use of anticoagulants; Z86.73 Personal history of transient ischemic attack (TIA), and cerebral infarction without residual deficits; Z87.891 Personal history of nicotine dependence; Z95.5 Presence of coronary angioplasty implant and graft; Z20.822 Contact with and (suspected) exposure to COVID-19; F32.9 Major depressive disorder, single episode, unspecified; Z82.49 Family history of ischemic heart disease and other diseases of the circulatory system; R23.4 Changes in skin texture; L29.9 Pruritus, unspecified
CPT/HCPCS: 36415; 71045-TC; 80048-TC; 80061-TC; 80076-TC; 83735-TC; 83880; 84100-TC; 84443-TC; 84484-TC; 85025-TC; 85378-TC; 85730-TC; 87081-TC; 93307-TC; 94799-TC; G0378; G0480; J1650

== ENCOUNTER 2024-09-08 20:07 | Emergency (ER) | payer MEDICARE, OTHER ==
[~2024-09-08] VITALS: Ht 185.4 cm; Wt 84.4 kg
[~2024-09-08 20:07] MED LIST changes: +ACET-868 PO; +AMLO2.5T4 PO; +APIX5TAB PO; -ASPI-605 PO; +ATOR40TA PO; +BISA10SU12 RC; +CRAN425C6 PO; -FERR325T23 PO; +FINA5TAB11 PO; +FLUT100B3 IH; -FLUT16SP NS; +ISOS120T13 PO; -ISOS60TA72 PO; -LISI10TA29 PO; +MAGN400O6 PO; -MECL-159 PO; +MECL-182 PO; +METO25TA4 PO; -METO25TA6 PO; +NA P133E RC; -ONDA-97 PO; +POLY17PO4 PO; +RANO10005 PO; -RANO500T3 PO; -ROSU40TA23 PO; -SENN-261 PO; +SERT25TA PO; +VALS160T2 PO
[2024-09-08 22:21] VITALS: BP 150/72; TEMP 98.1; O2SAT 98
== END 2024-09-08 23:12 | disposition home or self-care (01) ==
LOC: ER 20:09
DX: R00.2 Palpitations (principal); R00.0 Tachycardia, unspecified; I10 Essential (primary) hypertension; I25.10 Atherosclerotic heart disease of native coronary artery without angina pectoris; K21.9 Gastro-esophageal reflux disease without esophagitis; Z79.01 Long term (current) use of anticoagulants; Z79.02 Long term (current) use of antithrombotics/antiplatelets; Z79.899 Other long term (current) drug therapy; Z98.890 Other specified postprocedural states; Z60.2 Problems related to living alone